=== PATIENT | female | born 1965 | race Caucasian/White ===

== ENCOUNTER 2023-10-11 09:34 | Emergency (ER) | payer OTHER ==
[2023-10-11] MEDS ORDERED: Zofran 4 MG/2 ML VIAL IV ONE (09:37)
[2023-10-11] MEDS ORDERED: SUBLIMAZE 100 MCG/2 ML IV ONE (09:37)
[2023-10-11] MEDS ORDERED: SUBLIMAZE 100 MCG/2 ML ONE (09:42)
[2023-10-11] MEDS ORDERED: Sodium Chloride 0.9% 1000 ML 1,000 ML ONE (09:42)
[2023-10-11] MEDS ORDERED: Zofran 4 MG/2 ML VIAL ONE (09:42)
[2023-10-11] MEDS ORDERED: Sodium Chloride 0.9% 1000 ML 1,000 ML IV SCH (09:45)
[2023-10-11 09:51] VITALS: TEMP 96.8
--- NOTE | 2023-10-11 10:22 | ERPHSYRPT ---
- History of Present Illness Time Seen by Provider: 10/11/23 09:37 Source: patient Exam Limitations: no limitations Patient Subjective Stated Complaint: "I fell at home early this am outside the house and hurt my left leg and hip. Triage Nursing Assessment: AAox3, c/o left upper leg/hip pain s/p tripped and fell last night at home out in yard. Odor of etoh on breath, states did drink last pm. Denies other injuries. Unable to bear wt on left leg d/t pain. Physician History: 58 years old female with history of tobacco abuse, alcohol abuse presented in the ER with chief complaint of left hip pain after she fell early this morning around 3 AM outside of her house. Patient reports she was drinking at that time. She was able to make her go back inside her house with the help of her friend but reports excruciating pain left hip and making it impossible to have any weightbearing. Patient denies hitting her head. Last drink was 3 AM. Denies any chest pain palpitations or shortness of breath. Patient smells of heavy alcohol but is not confused or altered and holding conversation normally. Home Medications: No Reportable Medications [No Reported Medications] 10/11/23 [History] Travel Risk - International Travel Have you traveled outside of the country in past 3 weeks: No - Coronavirus Screening Are you exhibiting any of the following symptoms?: No Close contact with a COVID-19 positive Pt in past 14-21 Days: No - Vaccine Status Have you recieved a Covid-19 vaccination: Yes C D Still Operator: Unknown - Vaccination Dates Dates if Unknown: 2020 - Review of Systems Constitutional: No Symptoms Eyes: No Symptoms Ears, Nose, & Throat: No Symptoms Respiratory: No Symptoms Cardiac: No Symptoms Abdominal/Gastrointestinal: No Symptoms Genitourinary Symptoms: No Symptoms Musculoskeletal: Fall, Injury, Joint Pain Skin: No Symptoms Neurological: No Symptoms Hematologic/Lymphatic: No Symptoms Immunological/Allergic: No Symptoms - Past Medical History Pertinent Past Medical History: Yes Neurological History: No Pertinent History ENT History: No Pertinent History Cardiac History: No Pertinent History Respiratory History: No Pertinent History Endocrine Medical History: No Pertinent History Musculoskeletal History: No Pertinent History GI Medical History: No Pertinent History, Other History: No Pertinent History Psycho-Social History: No Pertinent History Female Reproductive Disorders: No Pertinent History Other Medical History: 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 - Past Surgical History Past Surgical History: Yes Neuro Surgical History: No Pertinent History Cardiac: No Pertinent History Respiratory: No Pertinent History Gastrointestinal: No Pertinent History Genitourinary: No Pertinent History Musculoskeletal: No Pertinent History Other Surgical History: 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 - Social History Smoking Status: Current every day smoker Drug Use: marijuana Patient Lives Alone: No - Nursing Vital Signs Nursing Vital Signs: Initial Vital Signs Temperature 96.8 F 10/11/23 09:37 Pulse Rate 74 10/11/23 09:37 Respiratory Rate 20 10/11/23 09:37 Blood Pressure 99/68 10/11/23 09:37 O2 Sat by Pulse Oximetry 95 10/11/23 09:37 Pain Scale Pain Intensity 6 - Physical Exam General Appearance: no apparent distress, alert Eye Exam: PERRL/EOMI Ears, Nose, Throat Exam: normal ENT inspection, TMs normal, pharynx normal, moist mucous membranes Neck Exam: normal inspection, non-tender, supple, full range of motion Respiratory Exam: normal breath sounds, lungs clear Cardiovascular Exam: regular rate/rhythm, normal heart sounds Gastrointestinal/Abdomen Exam: soft, normal bowel sounds, No tenderness Back Exam: normal inspection Extremity Exam: pelvis stable, limited range of motion (Left hip with restricted range of motion, reproducible pain with minimal rocking movements.) Neurologic Exam: alert, oriented x 3, cooperative, wine steward II-XII nml as tested, nml cerebellar function, sensation nml, No nml station & gait, No motor deficits Skin Exam: normal color SpO2 Interpretation: normal SpO2: 95 O2 Delivery: Room Air Ordered Tests: Active Orders 24 hr Category Date Time Status IV Insertion STAT Care 10/11/23 09:37 Active NPO (ED) STAT Care 10/11/23 09:37 Active CERVICAL SPINE WO CONTRAST [CT] Stat Exams 10/11/23 09:38 Completed CHEST 1 VIEW (PORTABLE) Stat Exams 10/11/23 09:38 Completed HEAD WITHOUT CONTRAST [CT] Stat Exams 10/11/23 09:38 Completed HIP UNI (2V) INCL PEL IF DONE Stat Exams 10/11/23 09:38 Completed CBC W DIFF Stat Lab 10/11/23 10:22 Completed CK (IN-HOUSE) [CK-Creatinine Phosphokinase] Stat Lab 10/11/23 10:22 Completed CMP Stat Lab 10/11/23 10:22 Completed ETHYL ALCOHOL Stat Lab 10/11/23 10:51 Ordered UA W/RFX UR CULTURE Stat Lab 10/11/23 09:37 Ordered Medication Summary Generic Name Dose Route Start Last Admin Trade Name Karen PRN Reason Stop Dose Admin Sodium Chloride 1,000 mls @ 100 mls/hr 10/11/23 09:45 10/11/23 09:49 Sodium Chloride 0.9% 1000 Ml IV 11/10/23 09:44 100 mls/hr .Q10H HANS Administration Discontinued Medications Generic Name Dose Route Start Last Admin Trade Name Karen PRN Reason Stop Dose Admin Fentanyl Citrate 50 mcg 10/11/23 09:37 10/11/23 09:51 Fentanyl Citrate 100 Mcg/2 Ml* Vial IV 10/11/23 09:38 50 mcg STAT ONE Administration Fentanyl Citrate Confirm 10/11/23 09:42 Fentanyl Citrate 100 Mcg/2 Ml* Vial Administered 10/11/23 09:43 Dose 100 mcg .ROUTE .STK-MED ONE Ondansetron HCl 4 mg 10/11/23 09:37 10/11/23 09:50 Ondansetron Hcl 4 Mg/2 Ml Vial IV 10/11/23 09:38 4 mg STAT ONE Administration Ondansetron HCl Confirm 10/11/23 09:42 Ondansetron Hcl 4 Mg/2 Ml Vial Administered 10/11/23 09:43 Dose 4 mg .ROUTE .STK-MED ONE Lab/Rad Data: Laboratory Result Diagrams 10/11/23 10:22 10/11/23 10:22 Laboratory Results 10/11/23 10/11/23 10/11/23 Range/Units 10:22 10:22 10:22 WBC 10.6 H (4.0-10.5) x10^3/uL RBC 3.80 L (4.1-5.4) x10^6/uL Hgb 12.3 (12.0-16.0) g/dL Hct 36.4 (35-47) % MCV 95.8 (78-100) fL MCH 32.4 H (26-32) pg MCHC 33.8 (32-36) g/dL RDW 13.7 (11.5-14.0) % Plt Count 202 (150-450) x10^3/uL MPV 9.7 (7.5-11.0) fL Gran % 58.5 (36.0-66.0) % Immature Gran % (Auto) 0.4 (0.00-0.4) % Nucleat RBC Rel Count 0.0 (0.00-0.1) % Eos # (Auto) 0.21 (0-0.5) x10^3/uL Immature Gran # (Auto) 0.04 H (0.00-0.03) x10^3u/L Absolute Lymphs (auto) 3.25 (1.0-4.6) x10^3/uL Absolute Monos (auto) 0.84 (0.0-1.3) x10^3/uL Absolute Nucleated RBC 0.00 (0.00-0.01) x10^3u/L Lymphocytes % 30.6 (24.0-44.0) % Monocytes % 7.9 (0.0-12.0) % Eosinophils % 2.0 (0.00-5.0) % Basophils % 0.6 (0.0-0.4) % Absolute Granulocytes 6.21 (1.4-6.9) x10^3/uL Basophils # 0.06 (0-0.4) x10^3/uL Sodium 135 L (137-145) mmol/L Potassium 3.6 (3.5-5.1) mmol/L Chloride 98 (98-107) mmol/L Carbon Dioxide 29 (22-30) mmol/L Anion Gap 11.9 (5-15) MEQ/L BUN 5 L (7-17) mg/dL Creatinine 0.58 (0.52-1.04) mg/dL Estimated GFR 103.5 ML/MIN Glucose 105 (74-106) mg/dL Calcium 8.5 (8.4-10.2) mg/dL Total Bilirubin 0.40 (0.2-1.3) mg/dL AST 33 (14-36) U/L ALT 14 (0-35) U/L Alkaline Phosphatase 65 (38-126) U/L Creatine Kinase 90 (30-135) U/L Serum Total Protein 6.8 (6.3-8.2) g/dL Albumin 3.9 (3.5-5.0) g/dL - Progress Progress: improved, pain not gone completely Progress Note: 10/11/23 10:57 58-year-old is evaluated in the ER after a ground-level fall early this morning. Patient was drinking when this happened. Patient is complaining of left hip pain reproducible with minimal movements and unable to have any weightbearing. Distal neurovascular intact. 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 Chest x-ray negative for any acute trauma related findings. X-rays hip showed nondisplaced intertrochanteric fracture to the left. Baseline workup showed white count of 10, normal hemoglobin, fairly unremarkable chemistries. She is given symptomatic treatment for pain, on reevaluation she is feeling better. Discussed with Dr. Pravin Keith, reviewed history, workup and patient is excepted for transfer at [facility]. I have shared the results of workup with patient and plan of transfer which she understands and agrees. Discussed with Dr.: Other (Dr. Pravin Keith, ER physician [facility]) Will see patient in: ED Counseled pt/family regarding: drug and/or alcohol abuse, lab results, diagnosis, rad results, smoking cessation Medical Desision Making - Discussion of managment Care discussed with:: on-call "doc" Reviewed:: Test results Agreed on:: Treatment plan Will see patient: in ED - Diagnostic Testing Diagnostic test were ordered, analyzed, and reviewed by me: Yes Radiological Interpretation: Reviewed by me - Risk of complications The pt has a high risk of morbidity or mortality based on: Need for emergency major surgery, Decision regarding hospitilization or escalation of hosp level of care - Departure Departure Disposition: Transfer Clinical Impression: Hip fracture, left, Fall, Alcohol abuse Condition: Stable Critical Care Time: No Referrals: EDILIA WILSON [Primary Care Provider] - Follow up/PCP as directed
[2023-10-11 10:27] LABS: Absolute Neutrophil Ct (ANC) 6.21 x10^3/uL (1.4-6.9); BASOPHIL % 0.6 % (0.0-0.4); Basophil (Absolute #) 0.06 x10^3/uL (0-0.4); Eosinophil (Absolute #) 0.21 x10^3/uL (0-0.5); Hematocrit 36.4 % (35-47); Hemoglobin 12.3 g/dL (12.0-16.0); IMMATURE GRAN # 0.04 x10^3u/L (0.00-0.03); IMMATURE GRAN % 0.4 % (0.00-0.4); Lymphocyte (Absolute #) 3.25 x10^3/uL (1.0-4.6); Lymphocytes % 30.6 % (24.0-44.0); Mean Cell Volume 95.8 fL (78-100); Mean Corpuscular Hemoglobin 32.4 pg (26-32); Mean Corpuscular Hgb Concent. 33.8 g/dL (32-36); Mean Platelet Volume 9.7 fL (7.5-11.0); Monocyte (Absolute #) 0.84 x10^3/uL (0.0-1.3); Monocytes % 7.9 % (0.0-12.0); Neutrophil % 58.5 % (36.0-66.0); Platelet Count 202 x10^3/uL (150-450); Red Cell Distribution Width 13.7 % (11.5-14.0); White Blood Count 10.6 x10^3/uL (4.0-10.5)
--- NOTE | 2023-10-11 10:31 | XRAY ---
Indication: Status post fall. Multiple contiguous axial images obtained through the head without contrast. Comparison: None Age-appropriate global atrophy and remote lacunar infarct right basal ganglia. No acute intracranial hemorrhage, abnormal extra-axial fluid collection, or mass effect. Fourth ventricle is midline without hydrocephalus. Bony calvarium intact. 1.8 cm left maxillary sinus polyp/retention cyst. Remaining paranasal sinuses and mastoid air cells are clear. Impression: Remote lacunar infarct right basal ganglia. Left maxillary sinus polyp/retention cyst. Remaining CT head without contrast exam is negative.
--- NOTE | 2023-10-11 10:33 | XRAY ---
Indication: Status post fall. Multiple contiguous axial images obtained through the cervical spine. Sagittal and coronal reformatted images obtained. Comparison: None Axial images negative for acute fracture, suspicious bony lesions, or spinal canal stenosis. Minimal/mild multilevel endplate spurring and small superior T1/T2 Schmorl nodes. Facets are symmetric. Sagittal and coronal reformatted images demonstrates normal alignment. Mild C6-C7 disc space narrowing. No acute compression fracture, subluxation, or jumped facet. Normal appearing cranial cervical junction. Visualized noncontrasted soft tissues demonstrates mild scattered carotid calcifications bilaterally. Lung apices unremarkable. Impression: Negative acute fracture/subluxation. Incidental multilevel degenerative changes, T1/T2 Schmorl nodes, and bilateral carotid arteriosclerotic calcifications.
[2023-10-11 10:38] LABS: ALBUMIN 3.9 g/dL (3.5-5.0); ANION GAP 11.9 MEQ/L (5-15); BILIRUBIN,TOTAL 0.4 mg/dL (0.2-1.3); Calcium 8.5 mg/dL (8.4-10.2); Creatinine 1 0.58 mg/dL (0.52-1.04); EST GLOMERULAR FILTRATION RATE 103.5 ML/MIN; Potassium 3.6 mmol/L (3.5-5.1); Total Protein 6.8 g/dL (6.3-8.2)
--- NOTE | 2023-10-11 10:39 | XRAY ---
Indication: Status post fall. Comparison: None Portable chest hyperinflated and clear with incidental right hilar and right lung calcified granulomas. Heart not enlarged. Bony thorax intact with osteopenia. Impression: Nonacute hyperinflated chest with chronic features.
--- NOTE | 2023-10-11 10:41 | XRAY ---
Indication: Status post fall. Comparison: None AP pelvis and 2 view left hip demonstrates nondisplaced left intratrochanteric fracture. Elsewhere osteopenia and a few pelvic phleboliths. No other bony, articular, or soft tissue abnormalities.
[2023-10-11] MEDS ORDERED: MORPHINE SULFATE 2 MG INJ IV ONE (11:31)
[2023-10-11 11:35] VITALS: BP 136/72; PULSE 90; RESP 17; O2SAT 92
[2023-10-11] MEDS ORDERED: MORPHINE SULFATE 2 MG INJ ONE (11:38)
== END 2023-10-11 12:10 | disposition short-term general hospital (02) ==
LOC: ED 09:34
DX: S72.145A Nondisplaced intertrochanteric fracture of left femur, initial encounter for closed fracture (principal); W18.30XA Fall on same level, unspecified, initial encounter; Y92.007 Garden or yard of unspecified non-institutional (private) residence as the place of occurrence of the external cause; F10.10 Alcohol abuse, uncomplicated; Z72.0 Tobacco use
CPT/HCPCS: 36000; 36415; 70450; 71045; 72125; 73502; 80053; 82077; 82550; 85025; 94760; 96374; 96375; 99285; J2270; J2405; J3010